=== PATIENT | male | born 1970 | race Caucasian/White ===

== ENCOUNTER 2017-06-15 23:15 | Emergency (ER) | payer BC ==
[~2017-06-15] VITALS: Ht 177.8 cm; Wt 77.1 kg
[~2017-06-15 23:15] MED LIST: FLOMAX0.4 MG PO; MOTRIN600 MG PO; VICODIN 5/500 505 MG PO
== END 2017-06-16 00:12 | disposition home or self-care (01) ==
LOC: ED 23:15
DX: S62.626A Displaced fracture of middle phalanx of right little finger, initial encounter for closed fracture (principal); Z88.0 Allergy status to penicillin; W23.0XXA Caught, crushed, jammed, or pinched between moving objects, initial encounter; Y93.89 Activity, other specified; Y92.89 Other specified places as the place of occurrence of the external cause; Y99.9 Unspecified external cause status

== ENCOUNTER → 2021-06-22 | Day surgery (SDC) | payer BC ==
[~2021-06-22] VITALS: Ht 177.8 cm; Wt 77.1 kg
[2021-06-22 06:52] VITALS: BP 133/84
[2021-06-22 08:17] VITALS: BP 103/59
[2021-06-22 08:32] VITALS: BP 101/71
[2021-06-22 08:47] VITALS: BP 114/76
== END | disposition home or self-care (01) ==
LOC: SDC 04-23 08:00
PROVIDERS: ATTEND Surgery
DX: Z12.11 Encounter for screening for malignant neoplasm of colon (principal); K57.30 Diverticulosis of large intestine without perforation or abscess without bleeding; E78.00 Pure hypercholesterolemia, unspecified; Z88.0 Allergy status to penicillin; Z20.822 Contact with and (suspected) exposure to COVID-19; Z79.899 Other long term (current) drug therapy